=== PATIENT | male | born 1965 | race American Indian/Alaskan Native ===

== ENCOUNTER 2016-08-21 13:40 | Outpatient (CLI) | payer MEDICAID ==
[2016-08-21 14:25] LABS: Blood Urea Nitrogen 11 mg/dL (9-20)
[2016-08-21] MEDS ORDERED: NACL ONE (14:56)
--- NOTE | 2016-08-22 13:59 | Cat Scan Report ---
CT NECK WITH AND WITHOUT CONTRAST INDICATION: Unspecified voice resonance disorder. COMPARISON: None similar at this institution. FINDINGS: Pre-and post contrast neck CT performed. Axial, sagittal and coronal CT reconstructions demonstrate preserved parapharyngeal fat pads. Patent airway. Normal pharynx and epiglottis. Air noted in the left vallecula with inadequate right vallecular assessment. Nonspecific density/debris about the level of piriform sinuses also noted posteriorly on axial series 4, images 95-109. No air noted in the left piriform sinus. Larynx appears unremarkable. Symmetric, though somewhat prominent thyroid, slightly heterogeneous. Clear visualized lung apices. Few small cervical lymph nodes noted, not size significant. Normal salivary glands. Patent imaged vessels. Few radiopaque dental material create streak artifact, limiting exam. Approximately 4 mm left maxillary sinus mucosal thickening anteriorly. Clear remainder imaged paranasal sinuses and temporal bone air cells. Mastoids not well pneumatized. Slight leftward nasal septal deviation. Normal imaged intracranial appearance. Cervical spondylosis with greatest degenerative spurring involving C5 and C6. CONCLUSION: 1. No definite focal suspicious abnormal enhancement, though some debris about the level of the piriform sinuses noted posteriorly, as described. Direct visualization may also be considered for further evaluation, if strong clinical suspicion for focal pathology persists. 2. Various other incidental findings, as above. Thank you for the opportunity to participate in this patient's care.
== END 2016-08-21 13:41 | disposition home or self-care (01) ==
LOC: CT 13:40
PROVIDERS: ATTEND Otolaryngology
DX: R49.9 Unspecified voice and resonance disorder (principal); J34.2 Deviated nasal septum; M47.892 Other spondylosis, cervical region
CPT/HCPCS: 36415; 70492; 82565; 84520; Q9966

== ENCOUNTER 2016-09-16 09:12 | Outpatient (CLI) | payer MEDICAID ==
--- NOTE | 2016-09-16 10:58 | Fluoroscopy Report ---
MODIFIED BARIUM SWALLOW INDICATION: Dysphagia, shortness of breath. COMPARISON: None similar. FINDINGS: Fluoroscopy provided by radiologist for speech therapist to assess the swallowing mechanism. Food items of various consistencies given. No aspiration or penetration. Cervical spondylosis. Numerous radiopaque dental fillings. IMPRESSION: Successful modified barium swallow. Please refer to detailed report from speech pathologist. Thank you for the opportunity to participate in this patient's care.
== END 2016-09-16 09:13 | disposition home or self-care (01) ==
LOC: PT 09:12
PROVIDERS: ATTEND Otolaryngology
DX: K21.9 Gastro-esophageal reflux disease without esophagitis (principal); M47.892 Other spondylosis, cervical region
CPT/HCPCS: 74230